=== PATIENT | male | born 1940 | race Caucasian/White ===

== ENCOUNTER 2023-08-31 12:39 | Emergency (ER) | payer MEDICAID ==
[~2023-08-31] VITALS: Ht 162.6 cm; Wt 81.0 kg
[2023-08-31 13:09] VITALS: BP 147/56; PULSE 69; RESP 18; TEMP 98.5; O2SAT 100
[2023-08-31] MEDS ORDERED: ACET325T52 MT (16:21)
[2023-08-31] MEDS ORDERED: DICL100G58 TP (16:21)
== END 2023-08-31 16:57 | disposition home or self-care (01) ==
LOC: ER 13:32
DX: M25.561 Pain in right knee (principal); S09.90XA Unspecified injury of head, initial encounter; W01.0XXA Fall on same level from slipping, tripping and stumbling without subsequent striking against object, initial encounter; Y93.89 Activity, other specified; Y92.89 Other specified places as the place of occurrence of the external cause; Y99.8 Other external cause status
CPT/HCPCS: 73562; 99284